=== PATIENT | male | born 1945 | race Caucasian/White ===

== ENCOUNTER → 2017-03-04 | Outpatient (CLI) | payer OTHER ==
[~2017-03-04] MED LIST: SALINE 3% 15 ML NEB TX ONE
--- NOTE | 2017-03-04 16:29 | MRI ---
MRI BRAIN WITHOUT CONTRAST CLINICAL HISTORY: 72-year-old male with headaches and blurred vision and confusion. COMPARISON: None. TECHNIQUE: Multiplanar, multisequence MR images of the brain were obtained without contrast. FINDINGS: Study is limited secondary to patient motion. There is no evidence of diffusion restrictio n. The craniocervical junction is normal. Pituitary and optic nerve complex are normal. Multifocal p unctate T2 FLAIR signal hyperintensities are present within the periventricular and supraventricular white matter that are nonspecific in appearance but most likely to represent microvascular white ma tter ischemic changes. Normal signal characteristics and morphology are demonstrated within the cere bral cortex, corpus callosum, deep rosen nuclei, brainstem and cerebellum. The major vascular flow vo ids, to include the dural venous sinuses, are intact. Age related cortical volume loss is present, with commensurate sulcal and ventricular prominence. The basilar cisterns are normal. The orbits and globes are within normal limits. The paranasal sinuses, tympanic cavities and mastoid s are clear. IMPRESSION: 1. No acute ischemic or hemorrhagic insult. 2. Chronic microvascular white matter ischemic disease with associated volume loss. Reported By:
--- NOTE | 2017-03-04 16:32 | MRI ---
MRA HEAD WITHOUT CONTRAST CLINICAL HISTORY: 72-year-old male with headaches, blurred vision in confusion. COMPARISONS: None. TECHNIQUE: 3-D time of flight magnetic resonance angiographic images of the [place] were ob tained and presented as maximum intensity projection images in rotating format. FINDINGS: Left dominant vertebral arterial system. Bilateral PICA are present. The basilar artery is normal in appearance and gives off normal bilateral AICA superior cerebellar and right posterior cerebral art eries. Large caliber left posterior communicating artery predominantly supplies the P2 segment on th e left with small caliber left P1 segment. The internal carotid arteries are normal from the distal cervical segments to the carotid terminus. Small caliber right posterior communicating artery. The m iddle and anterior cerebral arteries are normal in course and caliber. There is a small caliber ante rior communicating artery. IMPRESSION: No aneurysm, high-grade stenosis, complete occlusion, dissection or vascular malformation. Reported By:
--- NOTE | 2017-03-05 06:54 | VAS ---
HISTORY: dizziness, cerebral infarction Study: Carotid sonogram Comparison: None Technique: Multiple rosen scale and color flow Doppler images of the right and left carotid arterial system were obtained. The vertebral arterial system was evaluated as well. Findings: Mild plaque is present at both carotid bifurcations. Normal color flow Doppler is seen throughout th e right and left carotid arterial system. No hemodynamically significant stenosis is seen based on velocity criteria. The right and left vertebral arteries demonstrate antegrade flow. IMPRESSION: 1. No hemodynamically significant stenosis. Reported By:
== END ==
LOC: RAD 12:56
PROVIDERS: ATTEND Psychiatry & Neurology Neurology
DX: I63.8 Other cerebral infarction (principal); R42 Dizziness and giddiness
CPT/HCPCS: 70544; 70551; 93880; 95819

== ENCOUNTER → 2017-03-09 | Outpatient (CLI) | payer OTHER | LOC: RT 08:50 | PROVIDERS: ATTEND Psychiatry & Neurology Neurology | DX: G56.03 Carpal tunnel syndrome, bilateral upper limbs (principal) | CPT/HCPCS: 95910 ==